=== PATIENT | female | born 1965 | race Caucasian/White ===

== ENCOUNTER 2023-01-16 11:50 | Day surgery (SDC) | payer OTHER, SELFPAY ==
--- NOTE | 2023-01-15 10:44 | HO.ANESPROP2 ---
Documented by User: Laila Hale NP 01/15/23 10:45 HPI - Anesthesia Eval Consult details Narrative: 57yo F for Bilateral medial rectus Eye Muscle Recession PCP cleared [facility] Past Medical History Medical History Anorexia nervosa with bulimia Asthma Depression GERD (gastroesophageal reflux disease) Headache History of CVA (cerebrovascular accident) Hx of aneurysm Hypothyroid Osteoarthritis PTSD (post-traumatic stress disorder) Raynaud's disease Renal calculi Sjogren's syndrome Surgical History Surgical History (Updated 01/14/23 @ 09:40 by Dorota Espinosa RN) History of partial colectomy History of pubovaginal sling Hx of breast implants, bilateral Hx of hysterectomy Social History Social History Patient Tobacco Use Status: Never used Tobacco Use of substances other than those prescribed or required for medical reasons: No Are you DNR?: No Advance Directives: No Advance Directives Information Provided: Yes Meds Allergies Allergy/AdvReac Type Severity Reaction Status Date / Time meperidine [From Demerol] Allergy Unknown Verified 01/14/23 09:39 narcotics Allergy Unknown Uncoded 01/14/23 09:39 Home Medications Medication Instructions Recorded Confirmed Last Taken Type albuterol sulfate 90 mcg/actuation 1 puff inhalation Q4H PRN 01/14/23 01/14/23 Unknown History aerosol inhaler (ProAir HFA) Shortness Of Breath Or Wheezing atomoxetine 18 mg capsule 18 mg PO DAILY 01/14/23 01/14/23 Unknown History (Strattera) cariprazine 1.5 mg capsule 1.5 mg PO DAILY 01/14/23 01/14/23 Unknown History (Vraylar) famotidine 20 mg tablet 20 mg PO BEDTIME 01/14/23 01/14/23 Unknown History fluticasone propionate 110 2 puff inhalation BID 01/14/23 01/14/23 Unknown History mcg/actuation HFA aerosol inhaler (Flovent HFA) gabapentin 300 mg capsule 600 mg PO BID 01/14/23 01/14/23 Unknown History levothyroxine 112 mcg tablet 112 mcg PO DAILY 01/14/23 01/14/23 01/16/23 History topiramate 50 mg tablet 50 mg PO BEDTIME 01/14/23 01/14/23 Unknown History trazodone 100 mg tablet 200 - 300 mg PO BEDTIME 01/14/23 01/14/23 Unknown History valacyclovir 500 mg tablet 500 mg PO DAILY 01/14/23 01/14/23 Unknown History vilazodone 40 mg tablet 40 mg PO DAILY 01/14/23 01/14/23 Unknown History Exam Exam Date and Time: January 15, 2023 1044 Height,Weight and Vital Signs: Height 61 ft 3 in Weight 57.062 kg Assessment and Plan Assessment Anesthesia Assessment: Chart Reviewed Documented by User: Evelyn Brady DO 01/16/23 13:20 PMFSH Past Medical History Medical History Anorexia nervosa with bulimia Asthma Depression GERD (gastroesophageal reflux disease) Headache History of CVA (cerebrovascular accident) Hx of aneurysm Hypothyroid Osteoarthritis PTSD (post-traumatic stress disorder) Raynaud's disease Renal calculi Sjogren's syndrome Family History Family history of problems with anesthesia: No Surgical History Surgical History (Updated 01/14/23 @ 09:40 by Dorota Espinosa RN) History of partial colectomy History of pubovaginal sling Hx of breast implants, bilateral Hx of hysterectomy History of Problems with Anesthesia: No Social History Social History Patient Tobacco Use Status: Never used Tobacco Use of substances other than those prescribed or required for medical reasons: No Are you DNR?: No Advance Directives: No Advance Directives Information Provided: Yes Meds Allergies Allergy/AdvReac Type Severity Reaction Status Date / Time meperidine [From Demerol] Allergy Unknown Verified 01/14/23 09:39 narcotics Allergy Unknown Uncoded 01/14/23 09:39 Home Medications Medication Instructions Recorded Confirmed Last Taken Type albuterol sulfate 90 mcg/actuation 1 puff inhalation Q4H PRN 01/14/23 01/14/23 Unknown History aerosol inhaler (ProAir HFA) Shortness Of Breath Or Wheezing atomoxetine 18 mg capsule 18 mg PO DAILY 01/14/23 01/14/23 Unknown History (Strattera) cariprazine 1.5 mg capsule 1.5 mg PO DAILY 01/14/23 01/14/23 Unknown History (Vraylar) famotidine 20 mg tablet 20 mg PO BEDTIME 01/14/23 01/14/23 Unknown History fluticasone propionate 110 2 puff inhalation BID 01/14/23 01/14/23 Unknown History mcg/actuation HFA aerosol inhaler (Flovent HFA) gabapentin 300 mg capsule 600 mg PO BID 01/14/23 01/14/23 Unknown History levothyroxine 112 mcg tablet 112 mcg PO DAILY 01/14/23 01/14/23 01/16/23 History topiramate 50 mg tablet 50 mg PO BEDTIME 01/14/23 01/14/23 Unknown History trazodone 100 mg tablet 200 - 300 mg PO BEDTIME 01/14/23 01/14/23 Unknown History valacyclovir 500 mg tablet 500 mg PO DAILY 01/14/23 01/14/23 Unknown History vilazodone 40 mg tablet 40 mg PO DAILY 01/14/23 01/14/23 Unknown History Exam Exam Date and Time: January 16, 2023 1255 Height,Weight and Vital Signs: Height 61 ft 3 in Weight 57.062 kg Vital Signs Temperature 97.6 F 01/16/23 12:23 Pulse Rate 78 01/16/23 12:23 Respiratory Rate 18 01/16/23 12:23 Blood Pressure 105/73 01/16/23 12:23 Pulse Oximetry 96 01/16/23 12:23 Oxygen Delivery Method Room Air 01/16/23 12:23 Temperature 97.6 F 01/16/23 12:23 Pulse Rate 78 01/16/23 12:23 Respiratory Rate 18 01/16/23 12:23 Blood Pressure 105/73 01/16/23 12:23 Pulse Oximetry 96 01/16/23 12:23 Oxygen Delivery Method Room Air 01/16/23 12:23 Airway Mallampati Class: I TM Dist: >3cm Neck ROM: Full Loose/Missing/Broken Teeth: No Heart: S1S2 Lungs: CTAB Assessment and Plan Assessment Anesthesia Assessment: Anesthesia Plan Discussed and Chart Reviewed Final Anesthetic Review Family History of Problems with Anesthesia: No History of Problems with Anesthesia: No NPO: Yes ASA Class: II Final Preanesthetic Review: No Changes in Pt Med Stat, Meds/Allgs Chart Reviewed, Consent Obtained/Reviewed and Anes Risks/Benef Reviewed Patient Risk: Low Procedure Risk: Low Anesthetic Plan Anesthetic Plan: GA and Agree w/ Assess. and Plan Disposition: Standard PACU
--- OUTSIDE RECORDS SUMMARY | 2023-01-16 11:52 | XMS_ITS | Continuity of Care Document ---
Author Name Unknown Organization [facility] ter Address [address] [place] [address]- Care Team Providers Care Clearing Tub Worker Name Role Phone Acacia Rao DO Primary Care Sue ceron [facility]counter [facility] Date[facility]s): 10/01/22 - 11/11/[address] [address] Attending Physician: Acacia Rao DO Admitting Physician: Acacia Rao DO Referring Physician: Acacia Rao DO Allergies, Adverse Reactions, Alerts Substance Reaction Severity Status Demerol 1, 2 Active Nuts TONGUE SWELLS UP Active oxyCODONE 3 Active 1vomit 2breathing issues 3vomit Immunizations Given and Recorded Vaccine Date Status Refusal Reason influenza virus vaccine, inactivated 05/10/21 Robert rded influenza virus vaccine, inactivated 05/23/20 Robert rded influenza virus vaccine, inactivated 06/18/17 Robert rded influenza virus vaccine, inactivated 10/06/08 Give n SARS-CoV-2 (COVID-19) mRNA BNT-162b2 vac 03/29/21 Recorded SARS-CoV-2 (COVID-19) mRNA BNT-162b2 vac 03/08/21 Recorded zoster vaccine, inactivated 03/08/21 Recorded SARS-CoV-2 (COVID-19) mRNA-1273 vaccine 01/06/21 R ecorded Varicella Virus Vaccine 08/01/17 Recorded Meningococcal Conjugate Vaccine 08/01/17 Recorded Pneumococcal Vaccine (oldterm) 10/06/08 Given hepatitis B adult vaccine 10/10/92 Recorded hepatitis B adult vaccine 05/03/92 Recorded hepatitis B adult vaccine 04/04/92 Recorded Medications Adderall 10 mg oral tablet 1 tablet = 10 mg, By Mouth, 2 times a day, 0 Refills, Maintenance, 05/23/16 8:21:47, Tablet Start Date: 05/23/16 Status: Ordered EpiPen 2-Giovanny 0.3 mg injectable kit Intramuscular, Once, 0 Refills, Maintenance, 05/23/16 8:21:58 Start Date: 05/23/16 Status: Ordered gabapentin 300 mg oral capsule 300 mg, 1, capsule, By Mouth, 3 times a day, # 270 capsule, Refills 0, Maintenance, 05/23/16 8:20:57 Start Date: 05/23/16 Status: Ordered levothyroxine 0.112 mg oral tablet 0 Refills, Maintenance, 08/01/21 16:12:00 EST, Partial fill upon patient request if the prescription is for a schedule II opioid drug. Start Date: 08/01/21 Status: Ordered ProAir HFA 90 mcg/inh inhalation aerosol with adapter 2, puffs, Inhalation, 4 times a day, Refills 0, Maintenance, 05/23/16 8:22:36 Start Date: 05/23/16 Status: Ordered trazodone 300 mg oral tablet 0.5 tablet, By Mouth, Daily at bedtime, # 15 tablet, 0 Refills, Maintenance, Tablet Start Date: 07/30/11 Status: Ordered valACYclovir 500 mg oral tablet 1,000 mg, 2, tablet, By Mouth, Every 8 hours, # 60 tablet, Refills 0, Maintenance, 05/23/16 8:23:15 Start Date: 05/23/16 Stop Date: 06/02/16 Status: Ordered Viibryd 10 mg oral tablet 0 Refills, Maintenance, 08/01/21 16:15:00 EST, Partial fill upon patient request if the prescription is for a schedule II opioid drug. Start Date: 08/01/21 Status: Ordered Social History Social History Type Response Smoking Status Never smoker; Tobacc o user in household: No entered on: 05/23/16 Sex Patient Care team information Care Team Personnel Name: Johanna Limon Position: NATACHA S Member Role: Info System Support1 Name: Julissa Honeycutt RN Position: S RN Member Role: Primary Care Nurse Name: Eboni Silva Position: [facility] Outreach Member Role: Lifetime Consulting Physician Name: Acacia Rao DO Position: [facility] Physician (General Medicine) Member Role: PCP Address: Address: [address] [place] [address]- Name: Deangelo Ruiz MD Position: [facility] TRIAGE ASSISTANT MD Member Role: Lifetime Consulting Physician Address: Address: [address] [place] [address] [place] [address]- Care Team Related Persons Name: IRIS VICTORIA Address: [address] [place] [address] Name: IRIS VICTORIA Address: [address] [place], [place] Name: MARYCARMEN VICTORIA Address: [address] [place] [address] Name: MARYCARMEN VICTORIA Address: [address] [place] [address]
--- OUTSIDE RECORDS SUMMARY | 2023-01-16 11:53 | XMS_ITS | Continuity of Care Document ---
Author Name Unknown Organization [facility] Address [address] [place] [address]- Care Team Providers Care Automatic Vulcanizing Lead Operator Name Role Phone Alexsandra CAREY, Eduardo Nolasco Primary Care Physician [phone] [facility]counter [facility] Date(s): 03/20/21 - 04/19/21 [facility] [address] [place] [id number] Allergies, Adverse Reactions, Alerts Substance Reaction Severity Status Nuts TONGUE SWELLS UP Active Immunizations Given and Recorded Vaccine Date Status Refusal Reason influenza virus vaccine, inactivated 10/06/08 Give n Pneumococcal Vaccine (oldterm) 10/06/08 Given Medications Adderall 10 mg oral tablet 1 [...] 8:20:57 Start Date: 05/23/16 Status: Ordered levothyroxine 137 mcg (0.137 mg) oral capsule 1 capsule = 137 mcg, By Mouth, Daily, # 30 capsule, 0 Refills, Maintenance, 05/23/16 8:22:09, Capsule Start Date: 05/23/16 Status: Ordered Paxil CR 37.5 mg oral tablet, extended release 1 tablet = 37.5 mg, By Mouth, Daily in AM, # 90 tablet, 0 Refills, Maintenance, 05/23/16 8:22:24, ER Tablet Start Date: 05/23/16 Status: Ordered ProAir HFA 90 mcg/inh inhalation aerosol with adapter 2, puffs, Inhalation, 4 times a day, Refills 0, Maintenance, 05/23/16 8:22:36 Start Date: 05/23/16 Status: Ordered Topamax 100 mg oral tablet 3 tablets, By Mouth, 2 times a day, 0 Refills, Maintenance, 05/23/16 8:21:19 Start Date: 05/23/16 Status: Ordered trazodone 300 mg oral tablet 0.5 tablet, By Mouth, Daily at bedtime, # 15 tablet, 0 Refills, Maintenance, Tablet Start Date: 07/30/11 Status: Ordered valACYclovir 500 mg oral tablet 1,000 mg, 2, tablet, By Mouth, Every 8 hours, # 60 tablet, Refills 0, Maintenance, 05/23/16 8:23:15 Start Date: 05/23/16 Stop Date: 06/02/16 Status: Ordered Zantac 150 150, mg, By Mouth, 2 times a day, 0, 0, 09/27/08 15:08:08, Print KLAUDIA Number, [id number], ConstantIndicator Start Date: 09/27/08 Status: Ordered Social History Social History Type Response Smoking Status Never smoker; Tobacc o user in household: No entered on: 05/23/16 Sex
--- OUTSIDE RECORDS SUMMARY | 2023-01-16 11:53 | XMS_ITS | Continuity of Care Document ---
Author Name Unknown Organization [facility] laura Address [address] [place] [address] [address] [place] [address]- Care Team Providers Care Industry Consultant Name Role Phone Gay Yumi Acacia Primary Care Sue ceron [place] [facility] [place](s): 04/18/22 - 08/16/22 [facility] [address] [place], [place] [address] Attending Physician: Saúl Dueñas MD Referring Physician: Not on Staff, Referring MD Allergies, Adverse Reactions, Alerts Substance Reaction Severity [...] Team Personnel Name: Johanna Limon Position: [facility] Member Role: Info System Support1 Name: Yinka CARR, Julissa Position: [facility] RN Member Role: Primary Care Nurse Name: Eboni Silva Position: [facility] Outreach Member Role: Lifetime Consulting Physician Name: Acacia Rao DO Position: [facility] Physician (General Medicine) Member Role: PCP Address: Address: [address] [place] [address]- Name: Sara CAREY, Deangelo Carbajal Position: S REFERENCE TEST CLERK MD Member Role: Lifetime Consulting Physician Address: Address: [address] [place] [address] [place] [address]- Care Team Related Persons Name: IRIS VICTORIA Address: home [address] [place], [place] Name: IRIS VICTORIA Address: [address] [place], [place] Name: MARYCARMEN VICTORIA Address: [address] [place], [place] Name: MARYCARMEN VICTORIA Address: [address] [place] [address]
--- OUTSIDE RECORDS SUMMARY | 2023-01-16 11:53 | XMS_ITS | Continuity of Care Document ---
Author Name Unknown Organization [facility] Address [address] [place] [address]- Care Team Providers Care Roll Winder Name Role Phone GermainbrentAcacia Lopez DO Primary Care Sue ceron Encounter [facility] Date(s): 07/30/22 - 08/29/22 [facility] [address] [place], [place] [address] Attending Physician: Emily Major Admitting Physician: AdmtrEmily Referring Physician: Admtr, Ar8 Allergies, Adverse Reactions, Alerts Substance Reaction Severity [...] Team Personnel Name: Johanna Limon Position: [facility] Member Role: Info System Support1 Name: Julissa Honeycutt RN Position: [facility] RN Member Role: Primary Care Nurse Name: Eboni Silva Position: [facility] Outreach Member Role: Lifetime Consulting Physician Name: Aaccia Rao DO Position: [facility] Physician (General Medicine) Member Role: PCP Address: Address: [facility] [place] [address]- Name: Sara CAREY, Deangelo Carbajal Position: [facility] SALES ACCOUNT MANAGER MD Member Role: Lifetime Consulting Physician Address: Address: [address] [place] [address] [address] [place] [address]- Care Team Related Persons Name: IRIS VICTORIA Address: [address] [place] [address] Name: IRIS VICTORIA Address: [address] [place], [place] Name: MARYCARMEN VICTORIA Address: [address] [place] [address] Name: MARYCARMEN VICTORIA Address: [address] [place] [address]
--- OUTSIDE RECORDS SUMMARY | 2023-01-16 11:53 | XMS_ITS | Continuity of Care Document ---
Author Name Unknown Organization [facility] ter Address [address] [place] [address]- Care Team Providers Care Manager Talent Management Name Role Phone Darlyn Huddleston Primary Care Physician [facility] Date[facility]s): 05/10/22 - 07/20/[address] [id number] Attending Physician: Darlyn Huddleston Admitting Physician: Darlyn Huddleston Referring Physician: Darlyn Huddleston Allergies, Adverse Reactions, Alerts Substance Reaction Severity [...] opioid drug. Start Date: 08/01/21 Status: Ordered Paxil CR 37.5 mg oral [...] Care Team Personnel Name: Johanna Limon Position: DIRECTOR OF RETAIL OPERATIONS [facility] Member Role: Info System Support1 Name: Yinka RN, Julissa Position: [facility] RN Member Role: Primary Care Nurse Name: Eboni Silva Position: [facility] Outreach Member Role: Lifetime Consulting Physician Name: Darlyn Huddleston Position: [facility] Associate Professional Member Role: PCP Address: Address: [address] [place] [address] [address] [place] [address]- Name: Deangelo Ruiz MD Position: [facility] SUBSCRIPTION AGENT MD Member Role: Lifetime Consulting Physician Address: Address: [address] [place] [address] [address] [place] [address]- Care Team Related Persons Name: IRIS VICTORIA Address: home [address] [place] [address] Name: IRIS VICTORIA Address: [address] [place] [address] Name: MARYCARMEN VICTORIA Address: [address] [place] [address] Name: MARYCARMEN VICTORIA Address: [address] [place] [address]
--- OUTSIDE RECORDS SUMMARY | 2023-01-16 11:53 | XMS_ITS | Continuity of Care Document ---
Author Name Unknown Organization [facility] Address [address] [place] [address]- Care Team Providers Care Electrogalvanizing Machine Operator Name Role Phone Darlyn Huddleston Primary Care Physician Encounter [facility] [place] Date(s): 08/01/21 - 08/08/21 [facility] [address] [place] [address] Attending Physician: Davey Aguilar MD Admitting Physician: Davey Aguilar MD Referring Physician: Darlyn Huddleston Allergies, Adverse Reactions, [...] opioid drug. Start Date: 08/01/21 Status: Ordered Vital Signs Most recent to oldest [Reference Range]: 1 Height 157.48 cm (08/01/21 4:11 PM) Weight 62.60 kg (08/01/21 4:11 PM) Oxygen Saturation [94-100 %] 98 % (08/01/21 4:11 PM) Pulse Rate [55-90 bpm] 81 bpm (08/01/21 4:11 PM) Body Mass Index [18.5-24.99] 25.24 *H* (08/01/21 4:11 PM) Blood Pressure [90-138/55-84 mm Hg] 118/ 72mm Hg (08/01/21 4:11 PM) Mode of Delivery (Oxygen) Room air (08/01/21 4:11 PM) Blood pressure sites Arm, left (08/01/21 4:11 PM) Weight Obtained Via Patient/family state d (08/01/21 4:11 PM) Social History Social History Type Response Smoking Status Never smoker; Tobacc o user in household: No entered on: 05/23/16 Sex
--- OUTSIDE RECORDS SUMMARY | 2023-01-16 11:53 | XMS_ITS | Continuity of Care Document ---
Author Name Unknown Organization [facility] ter Address [address] [place] [address]- Care Team Providers Care Casing Builder Name Role Phone Alexsandra CAREY, Eduardo Nolasco Primary Care Physician [phone] [facility]counter [facility] Date(s): 03/10/21 - 07/14/[address] [address] Attending Physician: Darlyn Huddleston Admitting Physician: Darlyn [...] 0, 0, 09/27/08 15:08:08, Print KLAUDIA Number, [id number], ConstantIndicator Start Date: 09/27/08 Status: Ordered Social History Social History Type Response Smoking Status Never smoker; Tobacc o user in household: No entered on: 05/23/16 Sex
--- OUTSIDE RECORDS SUMMARY | 2023-01-16 11:53 | XMS_ITS | Continuity of Care Document ---
Author Name Unknown Organization [facility] laura Address [address] [place] [address] [address] [place] [address]- Care Team Providers Care Psych Assistant Name Role Phone GermainbrentAcacia Lopez DO Primary Care Sue ceron [facility]counter [facility] Date(s): 07/17/22 - 08/16/22 [facility] [address] [place], [place] [address] Attending Physician: Emily Major Admitting Physician: AdmtrEmily Referring Physician: Admtr ArMelchor Allergies, Adverse Reactions, Alerts Substance Reaction Severity [...] Team Personnel Name: Johanna Limon Position: NATACHA [facility] Member Role: Info System Support1 Name: Julissa Honeycutt RN Position: [facility] RN Member Role: Primary Care Nurse Name: Eboni Silva Position: [facility] Outreach Member Role: Lifetime Consulting Physician Name: Acacia Rao DO Position: [facility] Physician (General Medicine) Member Role: PCP Address: Address: [address] [place] [address]- Name: Deangelo Ruiz MD Position: [facility] PHARMACY CUSTOMER CARE SPECIALIST MD Member Role: Lifetime Consulting Physician Address: Address: [address] [place] [address] [place] [address]- Care Team Related Persons Name: IRIS VICTORIA Address: [address] [place] [address] Name: IRIS VICTORIA Address: [address] [place], [place] Name: MARYCARMEN VICTORIA Address: [address] [place] [address] Name: MARYCARMEN VICTORIA Address: [address] [place] [address]
--- OUTSIDE RECORDS SUMMARY | 2023-01-16 11:53 | XMS_ITS | Continuity of Care Document ---
Author Name Unknown Organization [facility] Address [address] [place] [address]- Care Team Providers Care Automotive Product Specialist Name Role Phone Darlyn Huddleston Primary Care Physician [place] [facility] [place] - 09/23/21 [facility] [address] [place] [address] [address] Attending Physician: Haley Caal NP Admitting Physician: Haley Caal NP Referring Physician: Darlyn Huddleston Allergies, Adverse Reactions, [...]
--- OUTSIDE RECORDS SUMMARY | 2023-01-16 11:53 | XMS_ITS | Continuity of Care Document ---
Author Name Unknown Organization [facility] Address [address] [place] [address]- Care Team Providers Care Natural Resource Technician Name Role Phone Darlyn Huddleston Primary Care Physician Encounter [facility] [place] Date(s): 08/24/21 - 09/23/21 [facility] [address] [place] [id number] Attending Physician: Emily Major Admitting Physician: Emily Major Referring Physician: AdmtrEmily Allergies, Adverse Reactions, Alerts Substance Reaction Severity [...]
--- OUTSIDE RECORDS SUMMARY | 2023-01-16 11:53 | XMS_ITS | Continuity of Care Document ---
Author Name Unknown Organization [facility] Address [address] [place] [address]- Care Team Providers Care Winter Intern Name Role Phone Darlyn Huddleston Primary Care Physician Encounter [facility] [place] Date(s): 08/01/21 - 09/21/21 [facility] [address] [place], [place] [address] Attending Physician: Davey Aguilar MD Admitting Physician: Davey Aguilar MD Referring Physician: Davey Aguialr MD Allergies, Adverse Reactions, Alerts Substance Reaction [...]
--- OUTSIDE RECORDS SUMMARY | 2023-01-16 11:53 | XMS_ITS | Continuity of Care Document ---
Author Name Unknown Organization [facility] Address [address] [place] [address]- Care Team Providers Care Supervisor Color Making Name Role Phone Darlyn Huddleston Primary Care Physician [phone] Encounter [facility] [place] Date(s): 08/22/21 - 09/21/21 [facility] [address] [place] [address] Attending Physician: Emily Major Admitting Physician: AdmEmily elliott Referring Physician: Admtr ArMelchor Allergies, Adverse Reactions, [...]
--- OUTSIDE RECORDS SUMMARY | 2023-01-16 11:53 | XMS_ITS | Continuity of Care Document ---
Author Name Unknown Organization [facility] ter Address [address] [place] [id number] Care Team Providers Care Vulcan Crewmember Name Role Phone Acacia Rao DO Primary Care Sue ceron Encounter [facility] Date(s): 11/27/22 - 01/13/[address] [id number] Attending Physician: Acacia Rao DO Admitting Physician: [...] Care Team Personnel Name: Johanna Limon Position: MEAT SPECIALIST Member Role: Info System Support1 Name: Julissa Honeycutt RN Position: S RN Member Role: Primary Care Nurse Name: Eboni Silva Position: S Outreach Member Role: Lifetime Consulting Physician Name: Acacia Rao DO Position: [facility] Physician (General Medicine) Member Role: PCP Address: Address: [address] [place] [address]- Name: Deangelo Ruiz MD Position: [facility] PUBLIC HEALTH MICROBIOLOGIST MD Member Role: Lifetime Consulting Physician Address: Address: [address] [place] [address] [address] [place] [address]- Care Team Related Persons Name: IRIS VICTORIA Address: home [address] [place], [place] Name: IRIS VICTORIA Address: home [address] [place], [place] Name: MARYCARMEN VICTORIA Address: home [address] [place], [place] Name: MARYCARMEN VICTORIA Address: home [address] [place] [address]
[2023-01-16 12:10] VITALS: BMI 24.2
[2023-01-16 12:23] VITALS: BP 105/73; PULSE 78; RESP 18; TEMP 36.4; O2SAT 96
[2023-01-16] MEDS: Lactated Ringers 1,000 ML 100 ML IVCONT (12:36)
[2023-01-16 13:58] VITALS: BP 116/73; PULSE 88; RESP 20; TEMP 36.4; O2SAT 100
[2023-01-16 14:03] VITALS: BP 112/74; PULSE 93; RESP 20; O2SAT 100
[2023-01-16] MEDS: Acetaminophen 325 MG TABLET 650 MG PO (14:06)
[2023-01-16 14:08] VITALS: BP 121/74; PULSE 93; RESP 20; O2SAT 100
[2023-01-16 14:13] VITALS: BP 126/76; PULSE 92; RESP 20; TEMP 36.9; O2SAT 98
--- NOTE | 2023-01-16 15:09 | HO.OPHTHAL ---
Ophthalmology Operative Note Date of Service: 01/16/23 Narrative: Diagnosis esotropia. Procedure bilateral medial rectus recessions of 3.[address] Bland. Anesthesia general. Complications none. The patient was brought to the operating room placed under general anesthesia. The eyes were prepped and draped in the usual sterile ophthalmic fashion. A lid speculum was placed in the right eye and incisions made at bare sclera in the inferonasal fornix. The medial rectus muscle was hooked and secured with a double-armed Vicryl suture. It was disinserted from the globe and reattached to a position 3.5 mm behind the original insertion. Conjunctiva was closed with interrupted Vicryl sutures. An identical procedure was then performed on the left eye. The patient was then awoken from general anesthesia and discharged to postoperative recovery in good condition.
== END 2023-01-16 15:10 | disposition home or self-care (01) ==
PROVIDERS: PCP Internal Medicine; Visit Provider Ophthalmology
PROC: (CPT 67311; principal; 2023-01-16 13:10)
DX: H53.2 Diplopia (principal); J45.20 Mild intermittent asthma, uncomplicated; G43.909 Migraine, unspecified, not intractable, without status migrainosus; E03.9 Hypothyroidism, unspecified; M35.00 Sjogren syndrome, unspecified; I73.00 Raynaud's syndrome without gangrene; F32.A Depression, unspecified; F43.10 Post-traumatic stress disorder, unspecified; F50.00 Anorexia nervosa, unspecified; Z68.23 Body mass index [BMI] 23.0-23.9, adult; Z86.73 Personal history of transient ischemic attack (TIA), and cerebral infarction without residual deficits; Z90.49 Acquired absence of other specified parts of digestive tract; Z79.51 Long term (current) use of inhaled steroids; Z79.899 Other long term (current) drug therapy; Z86.16 Personal history of COVID-19; Z88.8 Allergy status to other drugs, medicaments and biological substances
CPT/HCPCS: 67311; J1100; J1885; J2405